=== PATIENT | female | born 1975 | race African-American/Black ===

== ENCOUNTER 2017-05-15 19:18 | Emergency (ER) | payer MEDICAID, OTHER ==
[~2017-05-15] VITALS: Ht 162.6 cm; Wt 87.0 kg
[~2017-05-15 19:18] MED LIST: HYDROCHLOROTHIAZIDE
[2017-05-15] MEDS ORDERED: ACETAMINOPHEN 500MG TABLET PO ONE (19:45)
[2017-05-15] MEDS ORDERED: HYDROCHLOROTHIAZIDE 12.5MG CAPSULE PO ONE ×2 (23:00→23:30)
[2017-05-15] MEDS ORDERED: IBUPROFEN 600MG TABLET PO ONE (23:30)
[2017-05-16 00:32] VITALS: BP 175/102
== END 2017-05-16 00:39 | disposition home or self-care (01) ==
LOC: ER 19:18
DX: S92.415A Nondisplaced fracture of proximal phalanx of left great toe, initial encounter for closed fracture (principal); S80.02XA Contusion of left knee, initial encounter; S00.81XA Abrasion of other part of head, initial encounter; I10 Essential (primary) hypertension; F17.200 Nicotine dependence, unspecified, uncomplicated; F12.10 Cannabis abuse, uncomplicated; Z90.710 Acquired absence of both cervix and uterus; Y04.0XXA Assault by unarmed brawl or fight, initial encounter; W22.8XXA Striking against or struck by other objects, initial encounter; Y93.89 Activity, other specified; Y92.89 Other specified places as the place of occurrence of the external cause
CPT/HCPCS: 70450; 73562; 73630; 81025; 99284; Z7610

== ENCOUNTER 2018-11-22 12:33 | Emergency (ER) | payer OTHER ==
[~2018-11-22] VITALS: Ht 162.6 cm; Wt 86.0 kg
[2018-11-22 14:00] VITALS: BP 175/92
== END 2018-11-22 14:05 | disposition home or self-care (01) ==
LOC: ER 12:33
DX: S90.31XA Contusion of right foot, initial encounter (principal); I10 Essential (primary) hypertension; Z90.710 Acquired absence of both cervix and uterus; W22.8XXA Striking against or struck by other objects, initial encounter; Y93.89 Activity, other specified; Y92.018 Other place in single-family (private) house as the place of occurrence of the external cause
CPT/HCPCS: 73630; 99283